=== PATIENT | male | born 1950 | race Native Hawaiian/Other Pacific Islander ===

== ENCOUNTER 2018-01-27 08:04 | Emergency (ER) | payer OTHER, SELFPAY ==
[2018-01-27 08:05] VITALS: BMI 27.4
--- NOTE | 2018-01-27 08:32 | ED PDOC ---
Arrival/HPI <Jacque Kdid - Last Filed: 01/27/18 09:17> - General Historian: Patient - History of Present Illness Time/Duration: 1 hour Symptom Onset: Sudden Symptom Course: Improving Quality: Aching Severity Level: 2 <Scooter Mtz - Last Filed: 01/27/18 09:33> - General Chief Complaint: Trauma - History of Present Illness Narrative History of Present Illness (Text): Patient is a 68 year old male with a past medical history of questionable hypertension and diabetes who presents to the Emergency department for evaluation and treatment of head trauma. States he was in the shower and experienced a fall in which he hit the right side of his head on the bath tub. Admits to experiencing blurry vision and numbness/weakness in the left lower extremity after the fall which have resolved since onset. Also admits to localized dull aching pain which is rated a 2/10. Denies fever, chills, chest pain, shortness of breath, abdominal pain, nausea, vomiting, diarrhea, constipation, and urinary symptoms. 01/27/18 08:35 (Scooter Mtz) Past Medical History - Infectious Disease Hx of Infectious Diseases: None - Cardiac Hx Hypertension: Yes - Pulmonary Hx Respiratory Disorders: No - Neurological Hx Neurological Disorder: No - HEENT Hx HEENT Disorder: No - Musculoskeletal/Rheumatological Hx Falls: No - Psychiatric Hx Depression: No Hx Emotional Abuse: No Hx Physical Abuse: No Hx Substance Use: No - Anesthesia Hx Anesthesia: No - Suicidal Assessment Feels Threatened In Home Enviroment: No <Scooter Mtz - Last Filed: 01/27/18 09:33> Family/Social History - Physician Review Nursing Documentation Reviewed: Yes Family/Social History: Unknown Family HX Smoking Status: Never Smoked Hx Alcohol Use: No Hx Substance Use: No Hx Substance Use Treatment: No <Scooter Mtz - Last Filed: 01/27/18 09:33> Allergies/Home Meds <Jacque Kidd - Last Filed: 01/27/18 09:17> <Scooter Mtz - Last Filed: 01/27/18 09:33> Allergies/Adverse Reactions: Allergies No Known Allergies Allergy (Verified 04/08/12 11:23) Home Medications: Home Meds Medication Instructions Recorded Confirmed Metoprolol Succinate XL [Toprol XL] 50 mg PO DAILY 04/09/12 01/27/18 Aspirin [[place] Aspirin] 81 mg PO DAILY 01/27/18 01/27/18 Simvastatin [Simvastatin] 10 mg PO DAILY 01/27/18 01/27/18 Review of Systems - Review of Systems Constitutional: Normal Eyes: Vision Changes ENT: Normal Respiratory: Normal Cardiovascular: Normal Gastrointestinal: Normal Genitourinary Male: Normal Musculoskeletal: Normal Skin: Normal Neurological: Other (focal left lower extremity numbness) Endocrine: Normal Hemo/Lymphatic: Normal Psychiatric: Normal <Scooter Mtz - Last Filed: 01/27/18 09:33> Physical Exam Temperature: Afebrile Blood Pressure: Hypertensive Pulse: Regular Respiratory Rate: Normal Appearance: Positive for: Well-Appearing, Non-Toxic, Comfortable Pain Distress: None Mental Status: Positive for: Alert and Oriented X 3 - Systems Exam Head: No: Atraumatic (hematoma in right parietal occipital junction ) Pupils: Present: PERRL Extroacular Muscles: Present: Other (horizontal nystagmus) Conjunctiva: Present: Normal Ears: Present: Normal Mouth: Present: Moist Mucous Membranes Nose (External): Present: Atraumatic Respiratory/Chest: Present: Clear to Auscultation, Good Air Exchange. No: Respiratory Distress, Accessory Muscle Use Cardiovascular: Present: Regular Rate and Rhythm, Murmurs, Normal S1, S2 Abdomen: No: Tenderness, Distention, Normal Bowel Sounds, Peritoneal Signs Upper Extremity: Present: Normal Inspection Lower Extremity: Present: Normal Inspection Neurological: Present: GCS=15 Skin: Present: Warm, Dry Psychiatric: Present: Alert, Oriented x 3, Normal Insight, Normal Concentration <Scooter Mtz - Last Filed: 01/27/18 09:33> Vital Signs Temp Pulse Resp BP Pulse Ox 01/27/18 09:11 78 18 166/94 H 99 01/27/18 08:15 98.6 F 68 18 173/98 H 98 Medical Decision Making <Jacque Kidd - Last Filed: 01/27/18 09:17> <Scooter Mtz - Last Filed: 01/27/18 09:33> ED Course and Treatment: 01/27/18 09:16 68 year old male presents to the Emergency department for right sided head discomfort s/p fall this morning. In agreement with resident note, which includes further HPI details. Patient was seen and evaluated with resident, came up with plan and treatment together. (Jacque Kidd) Assessment and Plan: Patient is a 68 year old male with a past medical history of questionable hypertension and diabetes who presents to the Emergency department for evaluation and treatment of head trauma. Head Trauma 01/27/18 08:43 - CT of Head without Contrast 01/27/18 09:24 - CT reviewed and appreciated- No acute intracranial pathology - Patient thoroughly instructed to return if there is new onset neurological symptoms including headaches, dizziness, visual changes, auditory changes, focal weakness/numbness, slurring speech or if pain worsens. (Scooter Mtz) - RAD Interpretation Narrative RAD Interpretations (Text): PROCEDURE: CT HEAD WITHOUT CONTRAST. HISTORY: head pain COMPARISON: None available. TECHNIQUE: Axial computed tomography images were obtained through the head/brain without intravenous contrast. Radiation dose: Total exam DLP = 891.39 mGy-cm. This CT exam was performed using one or more of the following dose reduction techniques: Automated exposure control, adjustment of the mA and/or kV according to patient size, and/or use of iterative reconstruction technique. FINDINGS: HEMORRHAGE: No intracranial hemorrhage. BRAIN: No mass effect or edema. No atrophy or chronic microvascular ischemic changes. VENTRICLES: Unremarkable. No hydrocephalus. CALVARIUM: Unremarkable. PARANASAL SINUSES: Unremarkable as visualized. No significant inflammatory changes. MASTOID AIR CELLS: Unremarkable as visualized. No inflammatory changes. OTHER FINDINGS: None. IMPRESSION: No acute intracranial abnormalities. No significant findings to account for the clinical presentation. (Scooter Mtz) Radiology Orders: 01/27/18 08:26 HEAD W/O CONTRAST [CT] Stat - PA / CLOTH DESIZING RANGE OPERATOR CHIEF / Resident Statement MD/DO has reviewed & agrees with the documentation as recorded. MD/DO has examined the patient and agrees with the treatment plan. - Scribe Statement The provider has reviewed the documentation as recorded by the Scribe <Jacque Kidd - Last Filed: 01/27/18 09:17> <Scooter Mtz - Last Filed: 01/27/18 09:33> - Scribe Statement Rhina Higgins. All medical record entries made by the Scribe were at my direction and personally dictated by me. I have reviewed the chart and agree that the record accurately reflects my personal performance of the history, physical exam, medical decision making, and the department course for this patient. I have also personally directed, reviewed, and agree with the discharge instructions and disposition. (Jacque Kidd) Disposition/Present on Arrival <Jacque Kidd - Last Filed: 01/27/18 09:17> - Present on Arrival Any Indicators Present on Arrival: No History of DVT/PE: No History of Uncontrolled Diabetes: No Urinary Catheter: No History of Decub. Ulcer: No History Surgical Site Infection Following: None - Disposition Have Diagnosis and Disposition been Completed?: No Disposition Time: 09:27 Patient Plan: Discharge <Scooter Mtz - Last Filed: 01/27/18 09:33> - Disposition Diagnosis: Head trauma Disposition: HOME/ ROUTINE Patient Problems: Current Active Problems Problem Status Onset Head trauma Acute Condition: GOOD Additional Instructions: KAEL SNYDER, thank you for letting us take care of you today. Your provider was Jacque Kidd MD and you were treated for FELL/HEAD AND LEG(L). The emergency medical care you received today was directed at your acute symptoms. If you were prescribed any medication, please fill it and take as directed. It may take several days for your symptoms to resolve. Return to the Emergency Department if your symptoms worsen, do not improve, or if you have any other problems. Please contact your doctor or call one of the physicians/clinics you have been referred to that are listed on the Patient Visit Information form that is included in your discharge packet. Bring any paperwork you were given at discharge with you along with any medications you are taking to your follow up visit. Our treatment cannot replace ongoing medical care by a primary care provider outside of the emergency department. Thank you for allowing the [facility] team to be part of your care today. If you had an X-Ray or CT scan: A Radiologist will review the ED reading if any change in treatment is needed we will contact you. If you had a blood, urine, or wound culture: It will take several days for the results, if any change in treatment is needed we will contact you. If you had an STI test: It will take 48 hours for the results. Please call after 1 week if you have not heard back. Referrals: Barbra Newman MD [Staff Provider] - Follow up with primary Forms: [employer] (Khmer)
[2018-01-27 08:40] VITALS: RESP 18; TEMP 98.6
--- NOTE | 2018-01-27 08:41 | ED PDOC ---
Arrival/HPI - General Chief Complaint: Trauma Past Medical History - Infectious Disease Hx of Infectious Diseases: None - Cardiac Hx Hypertension: Yes - Pulmonary Hx Respiratory Disorders: No - Neurological Hx Neurological Disorder: No - HEENT Hx HEENT Disorder: No - Musculoskeletal/Rheumatological Hx Falls: No - Psychiatric Hx Depression: No Hx Emotional Abuse: No Hx Physical Abuse: No Hx Substance Use: No - Anesthesia Hx Anesthesia: No - Suicidal Assessment Feels Threatened In Home Enviroment: No Family/Social History Smoking Status: Never Smoked Hx Alcohol Use: No Hx Substance Use: No Hx Substance Use Treatment: No Allergies/Home Meds Allergies/Adverse Reactions: Allergies No Known Allergies Allergy (Verified 04/08/12 11:23) Home Medications: Home Meds Medication Instructions Recorded Confirmed Metoprolol Succinate XL [Toprol XL] 50 mg PO DAILY 04/09/12 01/27/18 Aspirin [[place] Aspirin] 81 mg PO DAILY 01/27/18 01/27/18 Simvastatin [Simvastatin] 10 mg PO DAILY 01/27/18 01/27/18 Physical Exam Vital Signs Temp Pulse Resp BP Pulse Ox 01/27/18 08:15 98.6 F 68 18 173/98 H 98 Disposition/Present on Arrival - Present on Arrival History of DVT/PE: No History of Uncontrolled Diabetes: No Urinary Catheter: No History of Decub. Ulcer: No History Surgical Site Infection Following: None - Disposition
[2018-01-27 09:12] VITALS: O2SAT 99
--- NOTE | 2018-01-27 09:13 | CT ---
PROCEDURE: CT HEAD WITHOUT CONTRAST. HISTORY: head pain COMPARISON: None available. TECHNIQUE: Axial computed tomography images were obtained through the head/brain without intravenous contrast. Radiation dose: Total exam DLP = 891.39 mGy-cm. This CT exam was performed using one or more of the following dose reduction techniques: Automated exposure control, adjustment of the mA and/or kV according to patient size, and/or use of iterative reconstruction technique. FINDINGS: HEMORRHAGE: No intracranial hemorrhage. BRAIN: No mass effect or edema. No atrophy or chronic microvascular ischemic changes. VENTRICLES: Unremarkable. No hydrocephalus. CALVARIUM: Unremarkable. PARANASAL SINUSES: Unremarkable as visualized. No significant inflammatory changes. MASTOID AIR CELLS: Unremarkable as visualized. No inflammatory changes. OTHER FINDINGS: None. IMPRESSION: No acute intracranial abnormalities. No significant findings to account for the clinical presentation.
[2018-01-27 09:37] VITALS: BP 165/92; PULSE 82
== END 2018-01-27 09:36 | disposition home or self-care (01) ==
LOC: ED 08:04
DX: S09.90XA Unspecified injury of head, initial encounter (principal); W01.198A Fall on same level from slipping, tripping and stumbling with subsequent striking against other object, initial encounter; Y93.E1 Activity, personal bathing and showering; Y92.002 Bathroom of unspecified non-institutional (private) residence as the place of occurrence of the external cause

== ENCOUNTER 2018-09-04 15:42 | Emergency (ER) | payer OTHER ==
[2018-09-04 15:42] VITALS: BMI 27.4
[2018-09-04 15:58] VITALS: RESP 18; TEMP 98.2; O2SAT 98
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
[2018-09-04 17:05] LABS: ALB/GLOB RATIO 1.4 (1.1-1.8); ALBUMIN 4.6 g/dL (3.0-4.8); ALT/SGPT 28 U/L (7-56); AST/SGOT 28 U/L (17-59); BLOOD UREA NITROGEN 18 mg/dL (7-21); CALCIUM 9.1 mg/dL (8.4-10.5); GFR NON-AFRICAN AMERICAN > 60
[2018-09-04 17:07] LABS: BASO # 0.01 K/mm3 (0.0-2.0); BASO % 0.2 % (0.0-3.0); EOS % 0.2 % (1.5-5.0); GRAN # 5.73 (1.4-6.5); GRAN % 87.1 % (50.0-68.0); HEMOGLOBIN 14.7 g/dL (14.0-18.0); LYMPH # 0.6 (1.2-3.4); LYMPH % 9.3 % (22.0-35.0); MEAN CELL VOLUME 91.1 fl (80.0-105.0); MEAN CORPUSCULAR HEMOGLOBIN 29.8 pg (25.0-35.0); MEAN CORPUSCULAR HGB CONC 32.7 g/dl (31.0-37.0); MEAN PLATELET VOLUME 10.2 fl (7.0-11.0); MONO # 0.2 (0.1-0.6); MONO % 3.2 % (1.0-6.0); RBC 4.93 10^6/uL (3.5-6.1); RED CELL DISTRIBUTION WIDTH 12.9 % (11.5-14.5); WHITE BLOOD COUNT 6.6 10^3/uL (4.5-11.0)
--- NOTE | 2018-09-04 17:09 | RAD ---
Date of service: 09/04/2018 HISTORY: syncope COMPARISON: Chest radiograph dated 04/08/2012. FINDINGS: LUNGS: No active pulmonary disease. PLEURA: No significant pleural effusion identified, no pneumothorax apparent. CARDIOVASCULAR: Aortic atherosclerotic calcifications. Cardiomediastinal silhouette stably enlarged. OSSEOUS STRUCTURES: Unchanged. VISUALIZED UPPER ABDOMEN: Normal. OTHER FINDINGS: None. IMPRESSION: No active disease.
[2018-09-04 17:12] LABS: INR 1.01; PARTIAL THROMBOPLASTIN TIME 32.2 Seconds (26.9-38.3); PROTHROMBIN TIME 11.2 SECONDS (9.4-12.5)
[2018-09-04 17:16] LABS: B-TYPE NATRIURETIC PEPTIDE 45.4 pg/mL (0-450); TROPONIN I < 0.01 ng/mL
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
[2018-09-04 19:18] VITALS: BP 142/76; PULSE 75
--- NOTE | 2018-09-04 19:21 | CP.PCM.HP ---
History of Present Illness - History of Present Illness History of Present Illness: Mor Souza, PGY1 H&P for Dr. Wilcox Past Patient History - Infectious Disease Hx of Infectious Diseases: None - Past Social History Smoking Status: Never Smoked - CARDIAC Hx Hypertension: Yes - PULMONARY Hx Respiratory Disorders: No - NEUROLOGICAL Hx Neurological Disorder: No - HEENT Hx HEENT Problems: No - MUSCULOSKELETAL/RHEUMATOLOGICAL Hx Falls: No - PSYCHIATRIC Hx Depression: No Hx Emotional Abuse: No Hx Physical Abuse: No Hx Substance Use: No - ANESTHESIA Hx Anesthesia: No Meds Allergies/Adverse Reactions: Allergies Allergy/AdvReac Type Severity Reaction Status Date / Time No Known Allergies Allergy Verified 04/08/12 11:23 Results - Vital Signs Recent Vital Signs: Last Vital Signs Temp 98.2 F 09/04/18 15:58 Pulse 75 09/04/18 19:18 Resp 18 09/04/18 19:18 BP 142/76 09/04/18 19:18 Pulse Ox 98 09/04/18 19:18 - Labs Result Diagrams: 09/04/18 16:46 09/04/18 16:46 Labs: Laboratory Results - last 24 hr 09/04/18 09/04/18 09/04/18 16:46 16:46 16:46 WBC 6.6 RBC 4.93 Hgb 14.7 Hct 44.9 MCV 91.1 MCH 29.8 MCHC 32.7 RDW 12.9 Plt Count 190 MPV 10.2 Gran % 87.1 H Lymph % (Auto) 9.3 L [place] % (Auto) 3.2 Eos % (Auto) 0.2 L Baso % (Auto) 0.2 Gran # 5.73 Lymph # (Auto) 0.6 L [place] # (Auto) 0.2 Eos # (Auto) 0.0 Baso # (Auto) 0.01 PT 11.2 INR 1.01 APTT 32.2 Sodium 139 Potassium 4.4 Chloride 103 Carbon Dioxide 28 Anion Gap 12 BUN 18 Creatinine 0.8 Est GFR ( Amer) > 60 Est GFR (Non-Af Amer) > 60 Random Glucose 116 H Calcium 9.1 Phosphorus 3.6 Magnesium 2.2 Total Bilirubin 0.8 AST 28 ALT 28 Alkaline Phosphatase 83 Total Creatine Kinase 94 Troponin I < 0.01 NT-Pro-B Natriuret Pep 45.4 Total Protein 7.9 Albumin 4.6 Globulin 3.3 Albumin/Globulin Ratio 1.4
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
--- NOTE | 2018-09-04 22:51 | CARD ---
APPROVED REPORT Date of service: 09/04/2018 EKG Measurement Heart [id number] <Conclusion> Normal sinus rhythm Q waves leads 3 and AVF- cannot exclude remote IMI CCR Abnormal ECG
== END 2018-09-04 19:21 | disposition left against medical advice (07) ==
LOC: ED 15:42 → UNDOADMOB 17:49 → ERH 17:49 → ED 19:21
DX: R41.82 Altered mental status, unspecified (principal); V43.52XA Car driver injured in collision with other type car in traffic accident, initial encounter; Y92.410 Unspecified street and highway as the place of occurrence of the external cause; I10 Essential (primary) hypertension
CPT/HCPCS: 70450; 71045; 80053; 82550; 83735; 83880; 84100; 84484; 85025; 85610; 85730; 93005; 99285; G0480